=== PATIENT | female | born 1985 | race Asian ===

== ENCOUNTER 2018-11-04 12:34 | Emergency (ER) | payer MEDICAID ==
[~2018-11-04] VITALS: Ht 157.5 cm; Wt 41.0 kg
[~2018-11-04 12:34] MED LIST: CYCL-1 PO
[2018-11-04] MEDS ORDERED: TETanus/Pertussis (Acell)/Diphther VAC/PF (Tdap-Adult) 0.5ml syringe IM ONE (13:35)
[2018-11-04] MEDS ORDERED: ibuprofen tablet 400 MG TABLET PO ONE (13:35)
[2018-11-04 14:12] VITALS: BP 123/69
== END 2018-11-04 14:07 | disposition home or self-care (01) ==
LOC: ER 12:35
DX: S91.331A Puncture wound without foreign body, right foot, initial encounter (principal); Z79.899 Other long term (current) drug therapy; W26.8XXA Contact with other sharp object(s), not elsewhere classified, initial encounter; Y93.89 Activity, other specified; Y92.89 Other specified places as the place of occurrence of the external cause; Y99.8 Other external cause status
CPT/HCPCS: 90471; 90715; 99283